=== PATIENT | male | born 2000 | race Caucasian/White ===

== ENCOUNTER 2019-10-18 10:52 | Emergency (ER) | payer MEDICAID ==
[~2019-10-18 10:52] MED LIST: AUGMENTIN875TAB OR; AUGMENTIN875TAB PO; FOLIC ACID1 MG PO; MUPIROCIN2 % EX; NEXIUM20 M1 PO; NEXIUM40 MG PO; PRILOSEC20 MG PO; ZOLOFT100 MG PO
[2019-10-18] MEDS ORDERED: CARAFATE1 GM PO (11:50)
[2019-10-18] MEDS ORDERED: AMOXICILLIN875 MG PO (11:50)
[2019-10-18 11:55] VITALS: BP 137/92
== END 2019-10-18 11:55 | disposition home or self-care (01) ==
LOC: ED 10:52
DX: J02.9 Acute pharyngitis, unspecified (principal); K21.9 Gastro-esophageal reflux disease without esophagitis

== ENCOUNTER 2019-10-19 16:29 | Inpatient (IN) | payer MEDICAID ==
[~2019-10-19] VITALS: Ht 167.6 cm; Wt 117.0 kg
[2019-10-19] VITALS: BP 138/90
[~2019-10-19 16:29] MED LIST changes: +AMOXICILLIN875 MG PO; +CARAFATE1 GM PO
--- NOTE | 2019-10-19 16:47 | NUR ---
PT TO ROOM WITH A SLOW STEADY GAIT.
--- NOTE | 2019-10-19 17:00 | NUR ---
PT PRESENTS WITH PERIUMBILICAL PAIN THAT STARTED THREE WKS AGO AND HAS BEEN INCREASING. PT HAS HAD N/V. VOMITING STARTED SINCE 0200. PT DENIES DIZZINESS OR BLURRED VISION. PT DENIES DIARRHEA. ABD SOFT AND TENDER, BOWEL MOVEMENTS REGULAR AND ACTIVE ON ASCULTATION. WILL CONTINUE TO MONITOR.
--- NOTE | 2019-10-19 17:30 | NUR ---
Reassessment of patient completed. No distress noted. Call padilla within reach. Denies any needs at this time. Will continue to monitor.
--- NOTE | 2019-10-19 18:03 | NUR ---
IVF infusing to LAC at prescribed rate. No redness or swelling noted. Explained wait time for results. Showed understanding. Call padilla within reach. Denies any needs at this time. Will continue to monitor.
[2019-10-19 18:06] LABS: HEMATOCRIT 46.9 % (39.0-50.0); HEMOGLOBIN 16.2 g/dl (14.0-18.0); IMMATURE GRANULOCYTES 0.5 % (0.0-5.0); MEAN CELL VOLUME 81.3 fL CALC (80.0-100.0); MEAN CORPUSCULAR HGB 28.1 pG CALC (26.0-32.0); MEAN CORPUSCULAR HGB CONC 34.5 g/L CALC (32.0-36.0); NEUT# 14.28 thou/uL (1.82-7.42); RED BLOOD COUNT 5.77 mill/uL (4.70-6.10); RED CELL DISTRI WIDTH 12.2 % (11.5-15.5)
[2019-10-19 18:35] LABS: ALKALINE PHOSPHATASE 120 u/l (38-126); ANION GAP 21 (6-22 (CALC)); BUN 14 mg/dL (9-20); BUN/CREATININE RATIO 14 (12-20 (CALC)); CARBON DIOXIDE 26 mmol/l (22-30); CHLORIDE 95 mmol/l (95-108); GFR > 60 ML/MIN (>=60 (CALC)); GFR FOR AFR.AMER. > 60 ML/MIN (>=60 (CALC)); LIPASE 39 u/l (23-300); POTASSIUM 4.2 mmol/l (3.5-5.1); SGOT/AST 25 u/l (17-59); SODIUM 138 mmol/l (137-146)
[2019-10-19 18:42] LABS: ALBUMIN 5.3 g/dL (3.2-5.0); BILIRUBIN, TOTAL 1.2 mg/dL (0.0-1.4); TOTAL PROTEIN 8.9 g/dL (6.3-8.2)
[2019-10-19 19:16] LABS: URINE BILIRUBIN - DIPSTICK NEGATIVE (NEGATIVE); URINE BLOOD DIPSTICK TRACE-INTACT (NEGATIVE); URINE COLOR YELLOW; URINE GLUCOSE - DIPSTICK >=1000 mg/dL (NEGATIVE); URINE KETONE NEGATIVE (NEGATIVE); URINE LEUK ESTERASE NEGATIVE (NEGATIVE); URINE NITRITE - DIPSTICK NEGATIVE (Negative); URINE PH 5.5 (4.5-8.0); URINE PROTEIN - DIPSTICK NEGATIVE (NEG-TRACE); URINE SPECIFIC GRAVITY <=1.005; URINE UROBILINOGEN - DIPSTICK 0.2 E.U./dL (0.2)
--- NOTE | 2019-10-19 19:40 | NUR ---
INSULIN INFUSING, IV PATENT. BLOOD PRESSURE SLIGHTLY HIGH IN 170s SYSTOLIC. PT MOTHER STATES THAT HE IS ANXIOUS AND IS SCARED OF HOSPITALS. IT IS ASKED IF THERE IS ANYTHING THAT COULD BE DONE TO HELP HIM, MOTHER STATED NO. PT WILL CONTINUE TO BE MONITORED AND NOTIFIED.
--- NOTE | 2019-10-19 20:44 | NUR ---
PT IS DISCUSSING PROBABLE AMA. HEAD OF BUSINESS DEVELOPMENT IS NOT ADVISING FOR PT TO GO HOME, WITH HIGH BLOOD GLUCOSE, AND NEEDED INSULIN DRIP THAT IS INFUSING, IT IS AMA TO LEAVE AT THIS POINT. IT WAS DISSCUSSED WITH PT AND THEY WERE THINKING ABOUT OPTIONS RIGHT NOW.
--- NOTE | 2019-10-19 21:59 | NUR ---
DR QUEEN NOTIFIED OF ACCUCHECK OF 409 ( IT IS GREATER THAN 400). TO CONTINUE INSULIN DRIP AT 5 UNITS
--- NOTE | 2019-10-19 22:25 | NUR ---
LOLA JEAN BAPTISTE
--- NOTE | 2019-10-19 22:30 | NUR ---
ACCUCHECK 385 SO INSULIN TITRATED TO 4UNITS?HR
--- NOTE | 2019-10-19 22:32 | NUR ---
VOIDED 600ML STRAW URINE
--- NOTE | 2019-10-19 22:37 | NUR ---
REPORT CALLED FOR RAJESH PRETTY
--- NOTE | 2019-10-19 22:40 | NUR ---
TO ICU WITH MOM AT SIDE. INSULIN DRIP INFUSING RX-TOLERATING WELL
--- NOTE | 2019-10-19 22:50 | NUR ---
PATIENT ARRIVES VIA WC FROM ER ACCOMPANIED BY RAJESH RAMIREZ AND HIS MOTHER, ON INSULIN DRIP AT 4 UNITS/HR AND NS AT 125 ML/HR. PT SAFELY ABLE TO WALK TO HIS BED. PATIENT PLACED ON DROPLET PRECS FOR DX OF STREP THROAT FOR WHICH THE MOTHER REPORTED SHE BROUGHT HIM YESTERDAY FOR SORE THROAT AND STOMACH ACHE, WAS DISCHARGED ON AMOXICILLIN AND CARAFTE, MOTHER REPORTS PT HAS NOT BEEN ABLE TO EAT FOR ABOUT 1 WEEK DUE TO HIS ACID REFLUX FOR WHICH THE MOTHER REPORTS HE HAS A HISTORY OF GASTRIC ULCERS, PATIENT DOES ADMIT TO NAUSEA AND SORE THROAT. MOTHER ANSWERED MOST OF THE QUESTIONS SINCE THE PATIENT DID NOT WANT TO PSEAK DUE TO HIS SORE THROAT, HE WAS ABLE TO NO HIS HEAD TO YES AND NO TO SIMPLE QUESTIONS. NKA. LAC 20 G IV INTACT AND MEDS INFUSING PROPERLY. LAST BM 10/19/19. PATIENT ADMITS TO RECENT STRESS FROM [employer]. CALL LIGHT WITHIN REACH. PT ABLE TO REPOSITION. WEIGHT 236.9 LBS.
[2019-10-19 23:00] VITALS: BP 127/76
[2019-10-19 23:15] VITALS: BP 135/76
--- NOTE | 2019-10-19 23:24 | NUR ---
DR ROD CALLED FOR ORDER FOR ZOFRAN AND AMOXICILLIN THAT PT WAS PRESCRIBES YESTERDAY.
[2019-10-19 23:30] VITALS: BP 134/75
[2019-10-19 23:45] VITALS: BP 135/76
--- NOTE | 2019-10-19 23:57 | NUR ---
PHARMACY HAS CALLED AND REPORTED THERE IS NOT AMOXICILLIN 875 MG, NEEDS ORDER CLARIFICATION. WILL CALL DR ROD AT ER.
[2019-10-20] VITALS (17 sets, daily range): BP systolic 121–144; BP diastolic 55–86
[2019-10-20 00:30] LABS: ANION GAP 17 (6-22 (CALC)); BUN 11 mg/dL (9-20); BUN/CREATININE RATIO 14 (12-20 (CALC)); CARBON DIOXIDE 26 mmol/l (22-30); CHLORIDE 105 mmol/l (95-108); CREATININE 0.7 mg/dL (0.7-1.3); GFR > 60 ML/MIN (>=60 (CALC)); GFR FOR AFR.AMER. > 60 ML/MIN (>=60 (CALC)); MAGNESIUM 2.5 mg/dL (1.6-2.3); POTASSIUM 3.9 mmol/l (3.5-5.1); SODIUM 144 mmol/l (137-146)
--- NOTE | 2019-10-20 02:47 | NUR ---
PATIENT LSYS WITH HOB ABOUT 45 DEGREES. NO ACUTE DISTRES SHOWN. NO NEEDS OR COMPLAINTS AT THIS TIME. HE IS AWAKE. MOTHER AT BEDSIDE. CALL LIGHT WITHIN REACH.
--- NOTE | 2019-10-20 04:39 | NUR ---
PATIENT TEMP 99.5, MOTHER EXPRESSES CONCERN, WILL MEDICATE WITH TYLENOL. PT DENIES NAUSEA, DOES ADMIT TO THROAT PAIN.
[2019-10-20 04:42] LABS: ANION GAP 14 (6-22 (CALC)); BUN 10 mg/dL (9-20); BUN/CREATININE RATIO 12 (12-20 (CALC)); CARBON DIOXIDE 28 mmol/l (22-30); CHLORIDE 105 mmol/l (95-108); CREATININE 0.8 mg/dL (0.7-1.3); GFR > 60 ML/MIN (>=60 (CALC)); GFR FOR AFR.AMER. > 60 ML/MIN (>=60 (CALC)); POTASSIUM 3.5 mmol/l (3.5-5.1); SODIUM 143 mmol/l (137-146)
--- NOTE | 2019-10-20 04:58 | NUR ---
TYLENOL PROVIDED. PT IS HESITANT TO TAKE IT, EXPLAINED HE HAS TEMP OF 99.5. PT C/O THROAT HURTING.
--- NOTE | 2019-10-20 06:20 | NUR ---
PATIENT SITS UP IN BED. NO ACUTE DISTRESS SHOWN. NO NEEDS OR COMPLAINTS AT THIS TIME. CALL LIGHT WITHIN REACH. MOTHER REMAINS AT BEDSIDE.
--- NOTE | 2019-10-20 07:30 | NUR ---
PT RESTING IN BED AWAKE. MOTHER AT BEDSIDE. PT IS ALERT AND ORIENTED X3. SHIFT ASSESSMENT COMPLETED AT THIS TIME. IV PATENT X1. CALL LIGHT IN REACH. WILL CONTINUE TO MONITOR.
--- NOTE | 2019-10-20 08:01 | NUR ---
LAB AT BEDSIDE AT THIS TIME
--- NOTE | 2019-10-20 08:10 | NUR ---
STREP CULTURE OBTAINED AND SENT TO LAB
[2019-10-20 08:31] LABS: ANION GAP 15 (6-22 (CALC)); BUN 9 mg/dL (9-20); BUN/CREATININE RATIO 12 (12-20 (CALC)); CARBON DIOXIDE 27 mmol/l (22-30); CHLORIDE 105 mmol/l (95-108); CREATININE 0.7 mg/dL (0.7-1.3); GFR > 60 ML/MIN (>=60 (CALC)); GFR FOR AFR.AMER. > 60 ML/MIN (>=60 (CALC)); POTASSIUM 3.6 mmol/l (3.5-5.1); SODIUM 142 mmol/l (137-146)
--- NOTE | 2019-10-20 09:55 | NUR ---
DR QUEEN AT BEDSIDE AT THIS TIME
--- NOTE | 2019-10-20 11:00 | NUR ---
INTO ROOM TO REASSESS AND SEE IF PATIENT HAD RELIEF WITH CHLORASEPTIC LOZENGE. PT STATES HE SPIT IT OUT. EXPLAINED EFFECTS IS TO HELP THROAT PAIN. PT STILL DECLINED
--- NOTE | 2019-10-20 12:00 | NUR ---
PT SITTING UP IN BED FAMILY MEMBERS AT BEDSIDE. PT SIPPING ON DIET SODA AT THIS TIME. CALL LIGHT IN REACH. WILL CONTINUE TO MONITOR.
--- NOTE | 2019-10-20 15:48 | NUR ---
PT RESTING IN BED WITH EYES CLOSED. RESP ARE EVEN AND UNLABORED. NO DISTRESS NOTED. CALL LIGHT IN REACH. WILL CONTINUE TO MONITOR.
--- NOTE | 2019-10-20 17:00 | NUR ---
DR QUEEN NOTIFIED OF CONTINUED ACCUCHECK >300. NEW ORDERS RECEIVED
--- NOTE | 2019-10-20 17:55 | NUR ---
PT REQUESTED MANDI AND DECLINED TRAY AT THIS TIME
--- NOTE | 2019-10-20 19:30 | NUR ---
awake. pt crosses throat when asked his name & . instructed pt he was able to speak. instructed about negative strep test. instructed about chloraseptic lozenge if needed. name & given. has poor eye contact. surveillance system monitor shows sinus tach hr 109. #20 lac 1/2ns infusing @ 125cchr. refused po intake. voided per urinal. fall precautions cont. mother @ bedside.
--- NOTE | 2019-10-20 22:00 | NUR ---
watching tv & using tablet. no distress. mother @ bedside.
--- NOTE | 2019-10-21 00:01 | NUR ---
awake. using tablet. no distress. monitor and storage bin tender shows sinus tach hr 114.
[2019-10-21 01:00] VITALS: BP 119/51
--- NOTE | 2019-10-21 02:00 | NUR ---
awake. no c/o voiced. cardiac surgeon shows sinus tach hr 102.
[2019-10-21 03:00] VITALS: BP 127/71
--- NOTE | 2019-10-21 04:00 | NUR ---
eyes closed. no distress. public works inspector shows sinus rhythm hr 72.
--- NOTE | 2019-10-21 06:00 | NUR ---
awake. no distress. campus monitor shows sinus rhythm pvcs.
--- NOTE | 2019-10-21 07:34 | NUR ---
REPORT RECEIVED FROM PATSY ORTIZ. PT SITTING UP IN BED WITH MOTHER AT BEDSIDE; ALERT AND ORIENTED X 3. SOFT SPOKEN DUE TO SORE THROAT THAT PT RATES A 4/10; IMPORVED FROM YESTERDAY. RESPIRATIONS EVEN AND UNLABORED ON ROOM AIR; SPO2 96%. 3 UNITS OF INSULIN GIVEN FOR ACCU CHECK OF 293. PLAN OF CARE REVIEWED. PT ENCOURAGED TO VERBALIZE CONCERNS. STATES UNDERSTANDING AND REQUESTS SHERBERT ICE CREAM WITH BREAKFAST TO HELP WITH SWALLOWING PAIN. SAFETY MEASURES IN PLACE. CALL LIGHT WITHIN REACH.
--- NOTE | 2019-10-21 09:25 | NUR ---
FATHER CALLED FOR UPDATE AND SPOKE WITH PT ON PHONE. MOTHER REMAINS AT BEDSIDE. PT ATE SOFT PORTIONS OF HIS BREAKFAST AND IS REQUESTING MILK TO SOOTH SORE THROAT. IV FLUIDS INFUSING WITHOUT DIFFICULTY; IV SITE APPEARS HEALTHY.
[2019-10-21] MEDS ORDERED: LANTUS SOL100 UNIT/M SC (09:41)
[2019-10-21] MEDS ORDERED: NOVOLOG FL100 UNIT/M SC (09:42)
--- NOTE | 2019-10-21 09:45 | NUR ---
DR. JONES AT BEDSIDE.
--- NOTE | 2019-10-21 10:38 | NUR ---
Discharge instructions given. Patient verbalizes understanding of same. Discharged in stable condition via Ambulatory to Home with mother. All belongings sent with pt.
== END 2019-10-21 10:35 | disposition home or self-care (01) | DRG 639 ==
LOC: ED 16:29 → ED-I 21:00 → ED 21:07 → ICU 21:08
PROVIDERS: Family Medicine; ADMIT Internal Medicine; ATTEND Internal Medicine
DX: E11.10 Type 2 diabetes mellitus with ketoacidosis without coma (principal); E11.00 Type 2 diabetes mellitus with hyperosmolarity without nonketotic hyperglycemic-hyperosmolar coma (NKHHC); I10 Essential (primary) hypertension; F41.1 Generalized anxiety disorder; K21.9 Gastro-esophageal reflux disease without esophagitis; Z83.3 Family history of diabetes mellitus
CPT/HCPCS: Q9967

== ENCOUNTER 2021-06-20 19:35 | Emergency (ER) | payer MEDICAID ==
[~2021-06-20] VITALS: Ht 167.6 cm; Wt 115.0 kg
[~2021-06-20 19:35] MED LIST changes: +LANTUS SOL100 UNIT/M SC; +NOVOLOG FL100 UNIT/M SC
[2021-06-20 20:29] LABS: HEMATOCRIT 45.2 % (39.0-50.0); HEMOGLOBIN 15.2 g/dl (14.0-18.0); IMMATURE GRANULOCYTES 0.4 % (0.0-5.0); MEAN CORPUSCULAR HGB 28.3 pG CALC (26.0-32.0); MEAN CORPUSCULAR HGB CONC 33.6 g/dL CAL (32.0-36.0); NEUT# 4.74 thou/uL (1.82-7.42); RED BLOOD COUNT 5.38 mill/uL (4.70-6.10); RED CELL DISTRI WIDTH 12.6 % (11.5-15.5)
[2021-06-20 20:46] LABS: ALBUMIN 4.7 g/dL (3.2-5.0); ALKALINE PHOSPHATASE 69 u/l (38-126); ANION GAP 14 (6-22 (CALC)); BILIRUBIN, TOTAL 0.8 mg/dL (0.0-1.4); BUN 10 mg/dL (9-20); BUN/CREATININE RATIO 9 (12-20 (CALC)); CARBON DIOXIDE 27 mmol/l (22-30); CHLORIDE 103 mmol/l (95-108); CREATININE 1.1 mg/dL (0.7-1.3); GFR > 60 ML/MIN (>=60 (CALC)); GFR FOR AFR.AMER. > 60 ML/MIN (>=60 (CALC)); LIPASE 27 u/l (23-300); POTASSIUM 3.9 mmol/l (3.5-5.1); SGOT/AST 41 u/l (17-59); SODIUM 141 mmol/l (137-146); TOTAL PROTEIN 8.5 g/dL (6.3-8.2)
[2021-06-20] MEDS ORDERED: JANUVIA100 MG PO (22:36)
[2021-06-20] MEDS ORDERED: METFORMIN HCL500 M1 PO (22:36)
[2021-06-20 22:43] LABS: URINE BILIRUBIN - DIPSTICK NEGATIVE (NEGATIVE); URINE BLOOD DIPSTICK NEGATIVE (NEGATIVE); URINE COLOR YELLOW; URINE GLUCOSE - DIPSTICK NEGATIVE (NEGATIVE); URINE KETONE NEGATIVE (NEGATIVE); URINE LEUK ESTERASE NEGATIVE (NEGATIVE); URINE NITRITE - DIPSTICK NEGATIVE (Negative); URINE PROTEIN - DIPSTICK TRACE mg/dL (NEG-TRACE); URINE UROBILINOGEN - DIPSTICK 0.2 E.U./dL (0.2)
[2021-06-20 23:22] VITALS: BP 142/93
== END 2021-06-20 23:35 | disposition home or self-care (01) ==
LOC: ED 19:35
DX: A08.4 Viral intestinal infection, unspecified (principal); I10 Essential (primary) hypertension; E11.9 Type 2 diabetes mellitus without complications; F41.9 Anxiety disorder, unspecified; Z79.84 Long term (current) use of oral hypoglycemic drugs; Z20.822 Contact with and (suspected) exposure to COVID-19
CPT/HCPCS: Q9967

== ENCOUNTER 2022-01-23 19:37 | Emergency (ER) | payer MEDICAID ==
[~2022-01-23] VITALS: Ht 167.6 cm; Wt 104.0 kg
[~2022-01-23 19:37] MED LIST changes: +JANUVIA100 MG PO; +METFORMIN HCL500 M1 PO
[2022-01-23 20:02] VITALS: BP 147/94
[2022-01-23 20:31] VITALS: BP 127/79
[2022-01-23 21:00] VITALS: BP 123/79
[2022-01-23 21:30] VITALS: BP 125/75
[2022-01-23 22:00] VITALS: BP 131/82
[2022-01-23 22:08] VITALS: BP 131/82
== END 2022-01-23 22:13 | disposition home or self-care (01) ==
LOC: ED 19:37
DX: S93.602A Unspecified sprain of left foot, initial encounter (principal); I10 Essential (primary) hypertension; E11.9 Type 2 diabetes mellitus without complications; F41.9 Anxiety disorder, unspecified; X58.XXXA Exposure to other specified factors, initial encounter; Z79.84 Long term (current) use of oral hypoglycemic drugs